=== PATIENT | male | born 1980 | race Two or more races ===

== ENCOUNTER 2024-07-19 14:05 | Emergency (ER) | payer BC ==
[~2024-07-19] VITALS: Ht 182.9 cm; Wt 127.0 kg
[2024-07-19 14:10] VITALS: TEMP 98
[2024-07-19 16:20] VITALS: BP 163/88; O2SAT 97
== END 2024-07-19 16:21 | disposition home or self-care (01) ==
LOC: ER 14:29
DX: I10 Essential (primary) hypertension (principal); K21.9 Gastro-esophageal reflux disease without esophagitis; F41.9 Anxiety disorder, unspecified